=== PATIENT | male | born 1970 | race Caucasian/White ===

== ENCOUNTER → 2016-10-20 | Outpatient (CLI) | payer BC ==
--- NOTE | 2016-10-24 06:59 | MRI ---
HISTORY: Chronic low back pain Study: MRI lumbar spine without contrast Comparison: None Technique: Multiplanar multi-sequence MRI of the lumbar spine was obtained. Sagittal T1, sagittal T 2, and stir weighted images, axial T1, and axial T2 images were obtained. Findings: The lumbar spine demonstrates normal alignment with the expected signal characteristics of the bone marrow with the exception of some degenerative endplate changes at L5-S1. The conus of the cord term inates normally. T12 -- L1: No evidence for compressive disc disease. The neural foramina are patent. The joints are normal. L1 -- L2: No evidence for compressive disc disease. The neural foramina are patent. The joints are n ormal. L2 -- L3: No evidence for compressive disc disease. The neural foramina are patent. Bilateral facet arthropathy is present. L3 -- L4: No evidence for compressive disc disease. The neural foramina are patent. The joints demon strate mild facet arthropathy bilaterally. L4 -- L5: Mild broad-based disc bulging contributes along with pedicular shortening to lateral reces s and foraminal narrowing bilaterally. The joints are normal. L5 -- S1: There is disc degeneration with broad-based disc bulging which contributes along with pedi cular shortening lateral recess and foraminal narrowing bilaterally left worse than right. IMPRESSION: As above Reported By:
== END ==
LOC: RAD 14:46
PROVIDERS: ATTEND Internal Medicine
DX: M54.5 Low back pain (principal)
CPT/HCPCS: 72148